=== PATIENT | female | born 1995 | race Caucasian/White ===

== ENCOUNTER 2021-12-05 22:28 | Emergency (ER) | payer OTHER ==
[2021-12-05 22:39] VITALS: BP 110/68
[2021-12-05 23:03] VITALS: BP 112/74
[2021-12-05 23:11] LABS: HEMATOCRIT 38.6 % (37.0-47.0); HEMOGLOBIN 12.4 g/dl (12.0-16.0); IMMATURE GRANULOCYTES 0.6 % (0.0-5.0); MEAN CELL VOLUME 87.3 fL CALC (80.0-100.0); MEAN CORPUSCULAR HGB 28.1 pG CALC (26.0-32.0); MEAN CORPUSCULAR HGB CONC 32.1 g/dL CAL (32.0-36.0); NEUT# 5.79 thou/uL (2.00-7.15); RED BLOOD COUNT 4.42 mill/uL (4.20-5.60); RED CELL DISTRI WIDTH 15.5 % (11.5-15.5)
[2021-12-05 23:11] LABS: URINE BILIRUBIN - DIPSTICK NEGATIVE (NEGATIVE); URINE BLOOD DIPSTICK NEGATIVE (NEGATIVE); URINE COLOR YELLOW; URINE GLUCOSE - DIPSTICK NEGATIVE (NEGATIVE); URINE KETONE NEGATIVE (NEGATIVE); URINE LEUK ESTERASE NEGATIVE (NEGATIVE); URINE NITRITE - DIPSTICK NEGATIVE (Negative); URINE PROTEIN - DIPSTICK NEGATIVE (NEG-TRACE); URINE UROBILINOGEN - DIPSTICK 0.2 E.U./dL (0.2)
[2021-12-05 23:23] LABS: ALBUMIN 4.5 g/dL (3.2-5.0); ALKALINE PHOSPHATASE 83 u/l (38-126); AMYLASE 68 u/l (30-110); ANION GAP 14 (6-22 (CALC)); BILIRUBIN, TOTAL 0.1 mg/dL (0.0-1.4); BUN 14 mg/dL (7-17); BUN/CREATININE RATIO 19 (12-20 (CALC)); CARBON DIOXIDE 25 mmol/l (22-30); CHLORIDE 107 mmol/l (95-108); CREATININE 0.8 mg/dL (0.5-1.0); GFR > 60 ML/MIN (>=60 (CALC)); GFR FOR AFR.AMER. > 60 ML/MIN (>=60 (CALC)); LIPASE 63 u/l (23-300); POTASSIUM 3.7 mmol/l (3.5-5.1); SGOT/AST 19 u/l (14-36); SODIUM 142 mmol/l (137-146); TOTAL PROTEIN 7.4 g/dL (6.3-8.2)
[2021-12-05 23:30] VITALS: BP 102/66
[2021-12-06] MEDS ORDERED: PEPCID20 MG PO (00:26)
[2021-12-06] MEDS ORDERED: ONDANSETRON4 MG PO (00:26)
[2021-12-06 00:35] VITALS: BP 111/69
[2021-12-06 00:52] VITALS: BP 111/69
== END 2021-12-06 00:52 | disposition home or self-care (01) ==
LOC: ED 22:28
PROVIDERS: Family Medicine
DX: K29.70 Gastritis, unspecified, without bleeding (principal); K29.80 Duodenitis without bleeding; F41.9 Anxiety disorder, unspecified

== ENCOUNTER 2022-08-05 13:23 | Emergency (ER) | payer OTHER ==
[~2022-08-05] VITALS: Ht 157.5 cm; Wt 54.0 kg
[~2022-08-05 13:23] MED LIST: ONDANSETRON4 MG PO; PEPCID20 MG PO
[2022-08-05 14:47] LABS: BASO% 0.3 % (0-3); EOS% 1.8 % (0-8); HEMATOCRIT 37.9 % (37.0-47.0); HEMOGLOBIN 12.6 g/dl (12.0-16.0); IMMATURE GRANULOCYTES 0.2 % (0.0-5.0); LYMPH% 25.2 % (15-41); MEAN CORPUSCULAR HGB 31.1 pG CALC (26.0-32.0); MEAN CORPUSCULAR HGB CONC 33.2 g/dL CAL (32.0-36.0); NEUT# 3.88 thou/uL (2.00-7.15); NEUT% 64.5 % (42-76); RED BLOOD COUNT 4.05 mill/uL (4.20-5.60); RED CELL DISTRI WIDTH 12.5 % (11.5-15.5)
[2022-08-05 14:49] LABS: MEAN CELL VOLUME 93.6 fL CALC (80.0-100.0)
[2022-08-05 14:50] LABS: ALBUMIN 5.1 g/dL (3.2-5.0); ALKALINE PHOSPHATASE 86 u/l (38-126); ANION GAP 11 (6-22 (CALC)); BUN 13 mg/dL (7-17); BUN/CREATININE RATIO 24 (12-20 (CALC)); CARBON DIOXIDE 27 mmol/l (22-30); CHLORIDE 106 mmol/l (95-108); CREATININE 0.5 mg/dL (0.5-1.0); GFR FOR AFR.AMER. > 60 ML/MIN (>=60 (CALC)); GFR OTHER RACES > 60 ML/MIN (>=60 (CALC)); POTASSIUM 3.7 mmol/l (3.5-5.1); SGOT/AST 26 u/l (14-36); SODIUM 140 mmol/l (137-146)
[2022-08-05 14:53] LABS: BILIRUBIN, TOTAL 0.4 mg/dL (0.0-1.4)
[2022-08-05 15:08] VITALS: BP 97/64
[2022-08-05 15:15] VITALS: BP 100/68
[2022-08-05 15:30] VITALS: BP 105/72
[2022-08-05 15:45] VITALS: BP 113/77
[2022-08-05 17:11] VITALS: BP 113/77
== END 2022-08-05 17:13 | disposition home or self-care (01) ==
LOC: ED 13:23
PROVIDERS: Internal Medicine
DX: N93.8 Other specified abnormal uterine and vaginal bleeding (principal); K29.70 Gastritis, unspecified, without bleeding; K29.80 Duodenitis without bleeding; F41.9 Anxiety disorder, unspecified

== ENCOUNTER 2023-01-22 19:56 | Emergency (ER) | payer OTHER ==
[~2023-01-22] VITALS: Ht 157.5 cm; Wt 58.0 kg
[2023-01-22 20:22] VITALS: BP 122/80
[2023-01-22 20:30] VITALS: BP 120/87
[2023-01-22 21:12] LABS: URINE BLOOD DIPSTICK TRACE-INTACT (NEGATIVE); URINE COLOR YELLOW; URINE GLUCOSE - DIPSTICK NEGATIVE (NEGATIVE); URINE KETONE >=80 mg/dL (NEGATIVE); URINE LEUK ESTERASE NEGATIVE (NEGATIVE); URINE PROTEIN - DIPSTICK 30 mg/dL (NEG-TRACE); URINE SPECIFIC GRAVITY >=1.030
[2023-01-22 21:13] LABS: BASO% 0.3 % (0-3); EOS% 0.7 % (0-8); HEMOGLOBIN 12.7 g/dl (12.0-16.0); IMMATURE GRANULOCYTES 0.1 % (0.0-5.0); LYMPH% 14.1 % (15-41); MEAN CORPUSCULAR HGB 28.9 pG CALC (26.0-32.0); MEAN CORPUSCULAR HGB CONC 33.4 g/dL CAL (32.0-36.0); MONO% 7.8 % (2-13); NEUT# 5.62 thou/uL (2.00-7.15); RED BLOOD COUNT 4.4 mill/uL (4.20-5.60); RED CELL DISTRI WIDTH 13.1 % (11.5-15.5)
[2023-01-22 21:13] LABS: URINE BILIRUBIN - DIPSTICK SEE COMMNET (NEGATIVE); URINE NITRITE - DIPSTICK NEGATIVE (Negative)
[2023-01-22 21:14] LABS: MEAN CELL VOLUME 86.4 fL CALC (80.0-100.0)
[2023-01-22 21:18] LABS: URINE BACTERIA MODERATE hpf; URINE SQUAMOUS EPITHELIAL CELL MANY EPI/hpf (0-FEW)
[2023-01-22 21:30] LABS: ALBUMIN 4.9 g/dL (3.2-5.0); ALKALINE PHOSPHATASE 64 u/l (38-126); AMYLASE 72 u/l (30-110); BUN 9 mg/dL (7-17); BUN/CREATININE RATIO 18 (12-20 (CALC)); CHLORIDE 103 mmol/l (95-108); CREATININE 0.5 mg/dL (0.5-1.0); GFR FOR AFR.AMER. > 60 ML/MIN (>=60 (CALC)); GFR OTHER RACES > 60 ML/MIN (>=60 (CALC)); LIPASE 60 u/l (23-300); POTASSIUM 3.7 mmol/l (3.5-5.1); SGOT/AST 27 u/l (14-36); SODIUM 137 mmol/l (137-146); TOTAL PROTEIN 8.2 g/dL (6.3-8.2)
[2023-01-22 21:33] LABS: ANION GAP 18 (6-22 (CALC)); BILIRUBIN, TOTAL 0.9 mg/dL (0.02-1.3); CARBON DIOXIDE 20 mmol/l (22-30)
[2023-01-22] MEDS ORDERED: PHENERGAN25 MG RE (22:39)
[2023-01-22] MEDS ORDERED: KEFLEX500 MG PO (22:39)
[2023-01-22 22:51] VITALS: BP 120/87
== END 2023-01-22 22:58 | disposition home or self-care (01) ==
LOC: ED 19:56
PROVIDERS: Emergency Medicine
DX: O21.9 Vomiting of pregnancy, unspecified (principal); O23.41 Unspecified infection of urinary tract in pregnancy, first trimester; N39.0 Urinary tract infection, site not specified; B95.7 Other staphylococcus as the cause of diseases classified elsewhere; Z3A.10 10 weeks gestation of pregnancy

== ENCOUNTER 2023-01-24 12:12 | Emergency (ER) | payer OTHER ==
[~2023-01-24] VITALS: Ht 157.5 cm; Wt 56.2 kg
[~2023-01-24 12:12] MED LIST changes: +KEFLEX500 MG PO; +PHENERGAN25 MG RE
[2023-01-24 13:09] LABS: BASO% 0.3 % (0-3); EOS% 1.1 % (0-8); HEMATOCRIT 34.3 % (37.0-47.0); HEMOGLOBIN 11.8 g/dl (12.0-16.0); IMMATURE GRANULOCYTES 0.2 % (0.0-5.0); LYMPH% 14.6 % (15-41); MEAN CELL VOLUME 85.8 fL CALC (80.0-100.0); MEAN CORPUSCULAR HGB 29.5 pG CALC (26.0-32.0); MEAN CORPUSCULAR HGB CONC 34.4 g/dL CAL (32.0-36.0); MONO% 7.2 % (2-13); NEUT# 5.09 thou/uL (2.00-7.15); NEUT% 76.6 % (42-76); RED CELL DISTRI WIDTH 13.4 % (11.5-15.5)
[2023-01-24 13:14] LABS: ALBUMIN 4.5 g/dL (3.2-5.0); ALKALINE PHOSPHATASE 52 u/l (38-126); ANION GAP 18 (6-22 (CALC)); BILIRUBIN, TOTAL 0.8 mg/dL (0.02-1.3); BUN 7 mg/dL (7-17); BUN/CREATININE RATIO 16 (12-20 (CALC)); CARBON DIOXIDE 17 mmol/l (22-30); CHLORIDE 104 mmol/l (95-108); CREATININE 0.4 mg/dL (0.5-1.0); GFR FOR AFR.AMER. > 60 ML/MIN (>=60 (CALC)); GFR OTHER RACES > 60 ML/MIN (>=60 (CALC)); POTASSIUM 3.5 mmol/l (3.5-5.1); SGOT/AST 21 u/l (14-36); SODIUM 136 mmol/l (137-146); TOTAL PROTEIN 7.7 g/dL (6.3-8.2)
[2023-01-24] MEDS ORDERED: ZOFRAN4 MG/TAB PO (13:55)
[2023-01-24 13:56] VITALS: BP 105/69
== END 2023-01-24 14:00 | disposition home or self-care (01) ==
LOC: ED 12:12
PROVIDERS: Family Medicine
DX: O21.0 Mild hyperemesis gravidarum (principal); Z3A.11 11 weeks gestation of pregnancy